=== PATIENT | male | born 1995 | race Two or more races ===

== ENCOUNTER 2024-01-28 21:10 | Emergency (ER) | payer OTHER ==
[~2024-01-28] VITALS: Ht 167.6 cm; Wt 106.6 kg
[2024-01-28] MEDS ORDERED: KETOROLAC TROMETHAMINE 15 MG VIAL IM STA (22:41)
== END 2024-01-28 22:57 | disposition home or self-care (01) ==
LOC: ER 21:12
DX: M94.0 Chondrocostal junction syndrome [Tietze] (principal); R07.89 Other chest pain

== ENCOUNTER 2024-06-11 08:36 | Emergency (ER) | payer OTHER ==
[~2024-06-11] VITALS: Ht 167.6 cm; Wt 102.1 kg
[2024-06-11 09:38] LABS: HEMATOCRIT 43.6 % (39.0-48.0); HEMOGLOBIN 14.2 g/dL (13-16.00); MEAN CELL VOLUME 83.5 fL (80.0-100.00); MEAN CORPUSCULAR HEMOGLOBIN 27.3 pg (27.00-32.0); MEAN CORPUSCULAR HGB CONC 32.7 g/dl (32.0-36.0); PLATELET COUNT 252 K/uL (150-450); RED BLOOD COUNT 5.22 M/uL (4.00-6.00)
[2024-06-11 10:03] LABS: BILIRUBIN TOTAL 0.91 mg/dL (0.3-1.2); CALCIUM 9.3 mg/dL (8.5-10.1); CREATININE SERUM 0.94 mg/dL (0.70-1.30); GFR 96.27; GLOBULINA 3.7 G/DL (2.4-3.5); POTASSIUM 4.02 mEq/L (3.5-5.1); TOTAL PROTEIN 7.7 gm/dL (6.4-8.2)
[2024-06-11] MEDS ORDERED: DICY20TA PO (13:56)
[2024-06-11] MEDS ORDERED: ACIDOPHILUS LA1 EACH PO (13:56)
[2024-06-11] MEDS ORDERED: PEPCID AC20 MG PO (13:56)
[2024-06-11] MEDS ORDERED: ZEGERID 20 MG1 EACH PO (13:56)
== END 2024-06-11 14:02 | disposition home or self-care (01) ==
LOC: ER 08:39
PROVIDERS: General Practice
DX: K29.70 Gastritis, unspecified, without bleeding (principal); R10.9 Unspecified abdominal pain
CPT/HCPCS: 36415; 74177; Q9965

== ENCOUNTER → 2024-06-18 | Emergency (ER) | payer OTHER ==
[~2024-06-18] VITALS: Ht 167.6 cm; Wt 102.5 kg
[~2024-06-18] MED LIST: ACIDOPHILUS LA1 EACH PO; DICY20TA PO; PEPCID AC20 MG PO; ZEGERID 20 MG1 EACH PO
[2024-06-18 05:44] VITALS: BP 125/72; O2SAT 99
== END | disposition home or self-care (01) ==
LOC: ER 05:21
DX: R07.89 Other chest pain (principal)

== ENCOUNTER 2024-07-23 03:42 | Emergency (ER) | payer OTHER ==
[~2024-07-23] VITALS: Ht 167.6 cm; Wt 102.5 kg
[2024-07-23] MEDS ORDERED: KETO10TA2 PO (05:49)
== END 2024-07-23 05:57 ==
LOC: ER 03:42
DX: R07.89 Other chest pain (principal)